=== PATIENT | female | born 1955 | race Two or more races ===

== ENCOUNTER 2018-01-04 03:13 | Emergency (ER) | payer MEDICARE, MEDICAID ==
[~2018-01-04] VITALS: Ht 152.4 cm; Wt 58.1 kg
[2018-01-04 03:15] VITALS: BP 136/67
[2018-01-04] MEDS ORDERED: LORazepam 0.5mg tab ORAL ONE (04:45)
--- NOTE | 2018-01-04 05:07 | Emergency Room Report ---
History of Present Illness General Chief Complaint: Behavioral Complaint Source: Patient Present Illness HPI 62-year-old female brought in by EMS after "fainting twice in my dad". Patient states that her "whole left side of my body is unconscious" and feels that "my heart is cold." she is worried she is Having a heart attack, but denies CAD risk factors including diabetes, hypertension and hyperlipidemia. Patient states she was here at [facility] earlier today however there is no record of her previous visit. Then patient states that she went to another hospital states she was on [place], and states she was "given Mylanta." But not additional prescriptions Review of CURES shows the patient received monthly prescription of alprazolam from psychiatrist. States "history of psychoses" and "takes something else" but cant remember. Denies SI, HI, AVH. Allergies: Coded Allergies: No Known Allergies (Unverified , 01/04/18) Patient History Past Medical History: psych hx Past Surgical History: none Pertinent Family History: none Social History: Denies: smoking, alcohol use, drug use Now: No Immunizations: UTD Reviewed Nursing Documentation: PMH: Agreed, PSxH: Agreed Nursing Documentation-PMH Past Medical History: No History, Except For Hx Hypertension: Yes Review of Systems All Other Systems: negative except mentioned in HPI Physical Exam Vital Signs Date Time Temp Pulse Resp B/P (MAP) Pulse Ox O2 Delivery O2 Flow Rate FiO2 01/04/18 03:00 98.0 75 18 136/67 99 Room Air 98.1 Sp02 EP Interpretation: reviewed, normal General Appearance: normal inspection, well appearing, no apparent distress, alert, GCS 15, non-toxic Head: normocephalic, atraumatic Eyes: bilateral eye PERRL, bilateral eye EOMI ENT: normal ENT inspection, hearing grossly normal, normal pharynx, no angioedema, normal voice, TMs + canals normal, uvula midline, moist mucus membranes Neck: normal inspection, full range of motion, supple, thyroid normal, no meningismus, no bony tend Respiratory: normal inspection, lungs clear, normal breath sounds, no rhonchi, no respiratory distress, no retraction, no accessory muscle use, no wheezing, speaking full sentences Cardiovascular #1: regular rate, rhythm, no edema, no JVD, normal capillary refill Gastrointestinal: normal inspection, normal bowel sounds, non tender, soft, no mass, no peritonitis, non-distended, no guarding, no hernia, no pulsatile mass Genitourinary: no CVA tenderness Musculoskeletal: normal inspection, back normal, normal range of motion, no calf tenderness, pelvis stable, Roman's Sign negative Neurologic: normal inspection, alert, oriented x3, responsive, multifocal lens assembler III-XII nml as tested, motor strength/tone normal, cerebellar normal, normal gait, speech normal Psychiatric: normal inspection, judgement/insight normal, mood/affect normal, no suicidal/homicidal ideation, no delusions, anxious Skin: normal inspection, normal color, no rash Lymphatic: normal inspection, no adenopathy Medical Decision Making ER Course Vital signs stable, afebrile Anxious appearing, no SI or HI ECG nonischemic patient reassured On cures patient has multiple prescriptions for alprazolam, I do not feel comfortable prescribing additional benzodiazepines or giving benzodiazepines in the ER. advised close psychiatric followup ER course: Patient has remained stable during ED stay. Disposition: Patient is to be discharged to home. Patient is instructed to follow up with their primary care doctor within 5 days. Strict return precautions discussed with patient such as fever, chills, worsening/severe pain, nausea, vomiting, which may indicate severe illness. Patient verbalizes understanding and agrees with plan. Please note that this Emergency Department Report was dictated using [employer] tech technology software, occasionally this can lead to erroneous entry secondary to interpretation by the dictation equipment EKG Diagnostic Results Rate: normal Rhythm: NSR ST Segments: no acute changes ASA given to the pt in ED: No Last Vital Signs Date Time Temp Pulse Resp B/P (MAP) Pulse Ox O2 Delivery O2 Flow Rate FiO2 01/04/18 03:00 98.0 75 18 136/67 99 Room Air 98.1 Status: improved Disposition: HOME, SELF-CARE Referrals: NOT CHOSEN IPA/,REFERRING (PCP) EPIFANIO ECHOLS M.D. Jan 04, 2018 05:07
[2018-01-04 05:43] VITALS: BP 136/67
--- NOTE | 2018-01-06 16:05 | Cardiology Report ---
APPROVED REPORT EKG Measurement Heart [id number] [place] [id number] Normal sinus rhythm Normal ECG
== END 2018-01-04 05:43 | disposition home or self-care (01) ==
LOC: EDBD 03:13 → EMR 03:40
DX: F41.9 Anxiety disorder, unspecified (principal)
CPT/HCPCS: 93005; 99283